=== PATIENT | male | born 1970 | race Caucasian/White ===

== ENCOUNTER → 2021-12-15 | Outpatient (CLI) | payer BC ==
[2021-12-15 10:13] LABS: Microalb/Creat Ratio UR, Rand 20.394 mg/g (0.000-30.000); Microalbumin, Random Urine 25.9 mg/L (0.000-20.000)
== END ==
LOC: LAB SHORT 07:40
PROVIDERS: Physician Assistant
DX: E11.9 Type 2 diabetes mellitus without complications (principal)
CPT/HCPCS: 82043; 82570

== ENCOUNTER → 2023-04-24 | Outpatient (CLI) | payer BC ==
[2023-04-25 12:46] LABS: Microalb/Creat Ratio UR, Rand 35.429 mg/g (0.000-30.000); Microalbumin, Random Urine 49.6 mg/L (0.000-20.000)
== END ==
LOC: LAB SHORT 14:34 → LAB 14:34
PROVIDERS: Physician Assistant
DX: E11.9 Type 2 diabetes mellitus without complications (principal)
CPT/HCPCS: 82043; 82570

== ENCOUNTER 2025-09-15 11:51 | Day surgery (SDC) | payer BC ==
[~2025-09-15] VITALS: Ht 175.3 cm; Wt 113.5 kg
[~2025-09-15 11:51] MED LIST: ASPI81CH PO; ATOR40TA PO; LISI20 PO; OMEP20ER PO; OZEMPIC0.25 MG/02
[2025-09-15 12:16] VITALS: BP 160/96
--- NOTE | 2025-09-15 12:29 | NUR ---
PT REPORTED TAKING OZEMPIC INJ ON 09/10/25. THIS WAS REPORTED TO DR. VELASQUEZ, THE ANESTHESIA PROVIDER. DUE TO THE FACT THAT IT HAS NOT BEEN 7 DAYS SINCE HIS LAST INJECTION THE PROCEDURE HAS BEEN CANCELLED. PT TOLERATED NEWS WELL. BELONGINGS RETURNED AND PT WALKED OUT. DR DAWKINS INFORMED.
== END 2025-09-15 23:00 | disposition home or self-care (01) ==
LOC: ORSCMMR 11:51 → ORD 12:30 → ORSCMMR 23:00
DX: Z12.11 Encounter for screening for malignant neoplasm of colon (principal); Z53.9 Procedure and treatment not carried out, unspecified reason
CPT/HCPCS: J7120